=== PATIENT | male | born 1955 | race Caucasian/White ===

== ENCOUNTER 2019-03-19 06:56 | Day surgery (SDC) | payer MEDICARE, OTHER ==
[~2019-03-19 06:56] MED LIST: Lactated Ringers 1,000 ML IV SCH
[2019-03-19] MEDS ORDERED: Propofol 200 MG/20 ML SDV IV ONE (06:57)
[2019-03-19] MEDS ORDERED: Midazolam 1 MG/ML 2 ML SDV IV ONE (06:57)
[2019-03-19] MEDS ORDERED: Lidocaine 1% PF 2 ML SDV INJECT ONE (06:57)
[2019-03-19] MEDS ORDERED: fentaNYL 100 MCG/2 ML SDV IV ONE (06:57)
[2019-03-19] MEDS ORDERED: Ondansetron 4 MG/2 ML SDV IVPUSH ONE (06:57)
[2019-03-19] MEDS ORDERED: ceFAZolin 2 GM in Premix Bag 1 BAG IV ONE (07:04)
--- NOTE | 2019-03-19 08:21 | PCM.OPNOTE ---
- General Post-Op/Procedure Note Date of Surgery/Procedure: 03/19/19 Operative Procedure(s): c scope with bx Findings: polyps ascending x2 and descending colon x2 Pre Op Diagnosis: screening Post-Op Diagnosis: colon polyps x4 Anesthesia Technique: MAC Primary Surgeon: Ben Rodriguez Anesthesia Provider: David Santana (CRNAS [facility] [place]) Pathology: colon polyps x 4 Complications: None Condition: Good Free Text/Narrative:: see dictation
[2019-03-19] MEDS ORDERED: Bupivacaine 0.5% 30 ML SDV ONE (08:30)
[2019-03-19] MEDS ORDERED: Dexamethasone 4 MG/ML SDV ONE (08:32)
--- NOTE | 2019-03-19 08:46 | PCM.OPNOTE ---
- General Post-Op/Procedure Note Date of Surgery/Procedure: 03/19/19 Operative Procedure(s): right carpal tunnel release Pre Op Diagnosis: right carpal tunnel syndrome Post-Op Diagnosis: same Anesthesia Technique: Local, MAC Primary Surgeon: Agustin Fallon Anesthesia Provider: David MORELOS in mLs: 0 Complications: None Condition: Good
--- NOTE | 2019-03-19 10:45 | OR ---
DATE OF OPERATION: 03/19/2019 SURGEON: Ben Rodriguez MD PROCEDURE PERFORMED: Colonoscopy with cold forceps biopsy. PREOPERATIVE DIAGNOSIS: Need for screening C-scope. POSTOPERATIVE DIAGNOSIS: Colon polyps x4, 2 to the ascending and 2 to the descending colon. INDICATIONS FOR PROCEDURE: This is a 63-year-old white male who is referred for his initial screening colonoscopy. He was offered and accepted same. DESCRIPTION OF OPERATION: After an excellent IV sedation was administered, digital rectal exam was performed. No marked abnormality was noted. Flexible colonoscope was inserted and advanced to the cecum. Prep was excellent. The following findings were noted. Ascending colon, two small 5 mm polyps located in close proximity to each other, biopsied with cold biopsy forceps and sent for permanent. Transverse colon, unremarkable. Descending colon, at the proximal and distal descending colon, two polyps biopsied and submitted in 1 container. Sigmoid was unremarkable. Rectum and anus were unremarkable. The patient tolerated the procedure well. The patient was handed over for his planned carpal tunnel release. I will be sending him results by letter. /[id number] /MODL
--- NOTE | 2019-03-19 10:52 | OR ---
DATE OF OPERATION: 03/19/2019 SURGEON: Agustin Fallon DO PREOPERATIVE DIAGNOSIS: Right carpal tunnel syndrome. POSTOPERATIVE DIAGNOSIS: Right carpal tunnel syndrome. PROCEDURE: Right carpal tunnel release. ANESTHESIA: AUTUMN wilson, David Maldonado CRNA. FLUID: Lactated Ringer's solution. ESTIMATED BLOOD LOSS: Zero. COMPLICATIONS: None. SPECIMEN: None. DISCHARGE DISPOSITION: Stable to PACU. HISTORY AND INDICATION FOR THE PROCEDURE: The patient was referred to me by Dr. Rodriguez. He had had years of increasing numbness in his hands. He had failed nonoperative treatment including bracing at night. He is having trouble with coordination of his thumb, index, and long finger on the right hand. Risks and benefits of the procedure were explained to the patient. Informed consent was obtained. PROCEDURE IN DETAIL: The patient was seen preoperatively by myself and anesthesia staff in the preop holding area where the operative site was marked and he was brought to the operative suite by the anesthesia staff, where Dr. Rodriguez had performed a colonoscopy. The patient was then rotated into a supine position. All extremities were found to be well padded. A hand table was placed on the hospital bed. The right upper extremity had a well-padded tourniquet placed on the right arm. The right upper extremity was then prepped and draped in a sterile manner. Time-out was called in for the correct patient, correct procedure, the correct site, and the antibiotics had been within appropriate time. The right upper extremity was then exsanguinated. Tourniquet was raised to 250 mmHg. An incision was made just proximal to the line of the first metacarpal shaft and then extended proximally in line with the radial border of the 4th digit approximately 1.5 cm. This was carried down through the subcutaneous layer. I used a 15 blade to sweep away the subcutaneous fat and used a bipolar for small bleeders. I then used a self-retaining retractor and then used a 15 blade to divide the transverse carpal ligament. After dividing the transverse carpal ligament, I then went underneath and above the deep palmar fascia both proximally and distally with small Metzenbaum scissors, and then under direct visualization using a Ragnell, I divided the deep palmar fascia proximally and distally to the transverse carpal ligament. Once this had been released, we then irrigated again with our local. Please note that I infiltrated with 1% lidocaine without epinephrine prior to the incision. I then applied Decadron and then closed with 3-0 nylon horizontal mattress interrupted sutures, followed by Betadine-soaked Adaptic dressing, sponges, Webril, and an Jeremiah wrap. The patient was then allowed to awaken from conscious sedation and taken to the PACU in stable condition. /[id number] BS/MODL
== END 2019-03-19 09:40 | disposition home or self-care (01) ==
LOC: FB.SDS 06:56
PROVIDERS: ATTEND Surgery
DX: Z12.11 Encounter for screening for malignant neoplasm of colon (principal); D12.2 Benign neoplasm of ascending colon; D12.4 Benign neoplasm of descending colon; G56.01 Carpal tunnel syndrome, right upper limb; I10 Essential (primary) hypertension; E78.00 Pure hypercholesterolemia, unspecified; F17.290 Nicotine dependence, other tobacco product, uncomplicated; G47.30 Sleep apnea, unspecified; Z99.89 Dependence on other enabling machines and devices; Z79.899 Other long term (current) drug therapy
CPT/HCPCS: 00812; 45380; 64721; 88305; J0690; J1100; J2001; J2250; J2405; J2704; J3010; J3490; J7120

== ENCOUNTER 2020-09-15 08:39 | Day surgery (SDC) | payer MEDICARE, OTHER ==
[2020-09-15] MEDS ORDERED: Midazolam 1 MG/ML 2 ML SDV IV ONE (08:40)
[2020-09-15] MEDS ORDERED: Propofol 200 MG/20 ML SDV IV ONE (08:40)
[2020-09-15] MEDS ORDERED: Sodium Chloride 0.9% 10 ML Syringe FLUSH PRN (08:45)
[2020-09-15] MEDS ORDERED: Lactated Ringers 1,000 ML IV SCH (08:45)
--- NOTE | 2020-09-15 10:57 | PCM.OPNOTE ---
- General Post-Op/Procedure Note Date of Surgery/Procedure: 09/15/20 Operative Procedure(s): c scope with hot loop and cold forceps biopsy Findings: ascending colon polyp transverse colon polyp x2 Pre Op Diagnosis: personal hx of colon polyps Post-Op Diagnosis: colon polyps Anesthesia Technique: MAC Primary Surgeon: Ben Rodriguez Anesthesia Provider: Divya Billings Pathology: see findings Complications: None Condition: Good Free Text/Narrative:: see dictation [id number]
--- NOTE | 2020-09-15 14:37 | PROC ---
DATE OF PROCEDURE: 09/15/2020 PROCEDURE PERFORMED: Colonoscopy with cold forceps and hot loop snare biopsy. PREOPERATIVE DIAGNOSIS: Personal history of colon polyps. POSTOPERATIVE DIAGNOSES: 1. Ascending colon polyp. 2. Transverse colon polyp x2. INDICATIONS FOR PROCEDURE: This is a 65-year-old white male, who over a year and half ago, had a colonoscopy. He had greater than 4 polyps removed, and it was recommended that he follow up in a year given the number of the adenomatous polyps. He presents now at the year and a half point for followup colonoscopy. DESCRIPTION OF PROCEDURE: After an excellent IV sedation was administered, digital rectal exam was performed. No marked abnormality was noted. Flexible colonoscope was inserted and advanced across to the cecum. The prep was excellent. The following findings were noted: Ascending colon: Small 3 mm polyp, biopsied with cold forceps and sent for permanent. The polyp base was obliterated. Transverse colon: A small bilobate polyp roughly about 6 mm in size was encountered. This was biopsied with a hot loop snare and submitted, and just distal to this was another small 4 mm polyp, again biopsied with cold biopsy forceps, obliterated, and sent for permanent. The descending colon was unremarkable. The sigmoid colon was unremarkable. The rectum and anus were unremarkable. It should also be noted that the patient's prostate exam did not reveal any abnormalities. Results will be sent to the patient via letter. /[id number] /MODL
== END 2020-09-15 11:40 | disposition home or self-care (01) ==
LOC: FB.SDS 08:39
PROVIDERS: ATTEND Surgery
DX: Z12.11 Encounter for screening for malignant neoplasm of colon (principal); D12.3 Benign neoplasm of transverse colon; D12.2 Benign neoplasm of ascending colon; I10 Essential (primary) hypertension; E78.5 Hyperlipidemia, unspecified; Z79.899 Other long term (current) drug therapy
CPT/HCPCS: 00811; 45380; 45385; 88305; J2250; J2704; J7120